=== PATIENT | male | born 1950 | race Caucasian/White ===

== ENCOUNTER 2018-08-13 01:32 | Emergency (ER) | payer MEDICARE, OTHER ==
[~2018-08-13] VITALS: Ht 193 cm; Wt 95.0 kg
[2018-08-13] MEDS ORDERED: MELATONIN (01:42)
[2018-08-13] MEDS ORDERED: DIPH,PERTUSS(ACELL),TET VAC/PF 0.5 ML IM-VACC ONE ×2 (01:46→02:00)
[2018-08-13 02:50] VITALS: BP 125/59
[2018-08-13] MEDS ORDERED: IBUPROFEN 600 MG TABLET ONE (03:53)
[2018-08-13] MEDS ORDERED: IBUPROFEN 600 MG TABLET PO ONE (04:00)
== END 2018-08-13 04:07 | disposition home or self-care (01) ==
LOC: ED 02:21
DX: S01.01XA Laceration without foreign body of scalp, initial encounter (principal); J32.9 Chronic sinusitis, unspecified; W18.39XA Other fall on same level, initial encounter; Y93.84 Activity, sleeping; Y92.009 Unspecified place in unspecified non-institutional (private) residence as the place of occurrence of the external cause; Y99.8 Other external cause status
CPT/HCPCS: 12032; 70450; 90471; 90715